=== PATIENT | male | born 1950 | race Hispanic/Latino ===

== ENCOUNTER 2017-08-20 09:27 | Day surgery (SDC) | payer MEDICARE ==
[2017-08-16 06:38] VITALS: BMI 32.0
[2017-08-20 10:01] LABS: BASO # 0.08 K/mm3 (0.0-2.0); BASO % 0.9 % (0.0-3.0); EOS # 0.3 (0.0-0.7); EOS % 2.7 % (1.5-5.0); GRAN # 5.44 (1.4-6.5); GRAN % 58.4 % (50.0-68.0); HEMOGLOBIN 13.5 g/dL (14.0-18.0); LYMPH # 2.9 (1.2-3.4); LYMPH % 30.6 % (22.0-35.0); MEAN CORPUSCULAR HEMOGLOBIN 31.9 pg (25.0-35.0); MEAN CORPUSCULAR HGB CONC 34.7 g/dl (31.0-37.0); MEAN PLATELET VOLUME 10.6 fl (7.0-11.0); MONO # 0.7 (0.1-0.6); MONO % 7.4 % (1.0-6.0); RBC 4.23 10^6/uL (3.5-6.1); WHITE BLOOD COUNT 9.3 10^3/ul (4.5-11.0)
[2017-08-20 10:10] LABS: CALCIUM 10.6 mg/dL (8.4-10.5)
[2017-08-20 10:11] LABS: INR 0.97 (0.93-1.08); PARTIAL THROMBOPLASTIN TIME 29.9 Seconds (25.1-36.5); PROTHROMBIN TIME 11.1 SECONDS (9.4-12.5)
[2017-08-20 10:14] VITALS: RESP 18; O2SAT 94
[2017-08-20] MEDS ORDERED: Iohexol 350mgl/ml 50 ML ONE (11:37)
[2017-08-20] MEDS ORDERED: Nitroglycerin 50mg in D5W 50 MG/250 ML BOTTLE IV ONE (11:37)
[2017-08-20] MEDS ORDERED: Lidocaine 2% Inj (20ml) ONE (11:37)
[2017-08-20] MEDS ORDERED: Verapamil 2 ML ONE (11:37)
[2017-08-20] MEDS ORDERED: Phenylephrine 10 mg/ml Inj ONE (11:37)
[2017-08-20] MEDS ORDERED: Iodixanol 320 MG/ML 200 ML BOTTLE IV ONE (11:37)
[2017-08-20] MEDS ORDERED: Midazolam 2 MG/2 ML VIAL ONE ×2 (11:42→11:53)
[2017-08-20] MEDS ORDERED: DiphenhydrAMINE 50 mg/ml Inj ONE (12:02)
[2017-08-20] MEDS ORDERED: Bacitracin 500 Units/gm Oint Foilpak UD TOP ONE (12:50)
[2017-08-20] MEDS ORDERED: Sodium Chloride 0.9% 1,000 ML IV SCH (13:00)
[2017-08-20 13:17] VITALS: TEMP 98.7
[2017-08-20] MEDS ORDERED: Bismuth Subsalicylate 262 mg/15 ml Sus (240 ml) PO ONE (13:33)
[2017-08-20] MEDS ORDERED: Bacitracin 500 Units/gm Oint Foilpak UD ONE (16:43)
[2017-08-20 17:03] VITALS: BP 135/70; PULSE 68
--- NOTE | 2017-08-20 21:31 | CARD ---
APPROVED REPORT EKG Measurement Heart [id number] [id number] <Conclusion> Normal sinus rhythm Left axis deviation Right bundle branch block Abnormal ECG
--- NOTE | 2017-08-29 15:55 | CARDCATH ---
PROCEDURE DATE: 08/20/2017 INDICATIONS: Mr. Candido Soliz is a 67-year-old male with past medical history significant for hypertension, diabetes, dyslipidemia, referred to me for abnormal nuclear stress test. The patient was brought to the laboratory sampler for further evaluation and treatment of symptoms of dyspnea on exertion along with abnormal nuclear stress test. PROCEDURE PERFORMED: Left heart catheterization with selective left and right coronary angiogram, PTCA stenting of mid RCA, deployment of drug-eluting stent x1, lesion reduction from 95% down to 0% NIDIA 3 flow, 6-Trinidadian radial arterial access, wrist band for hemostasis. TECHNIQUES OF PROCEDURE: After obtaining informed consent, the patient was brought to the cardiac catheterization suite in post-absorptive, non-sedated state. The patient was prepped and draped in the usual sterile fashion. A 2% lidocaine was used for infiltration of anesthesia. Using modified Seldinger technique, a 6-Trinidadian sheath was introduced into the left distal radial artery. Subsequently over J-wire, JR-4 diagnostic catheter was used to engage the right and left coronary system. Angiograms were obtained in different orthogonal views. CORONARY ANATOMY: Right coronary artery, large size vessel. Mid segment has a 95% stenosis. Distal RCA has mild 40% stenosis, right PDA and PLV, non-obstructive. Left coronary system, left main is large size vessel, gives off left circumflex and left anterior descending artery. Left circumflex has a mid 30% stenosis, runs in the AV groove, is a large vessel that gives off two medium-sized obtuse marginal branches which are non-significant and free of any obstructive disease. Distal circumflex has intermediate 40% stenosis. Left anterior descending artery has proximal 60% stenosis. Left anterior descending artery gives off 2 small septal perforators and 3 medium size diagonal branches. INTERVENTION: After reviewing the above angiographic findings, it was decided to further to fix the mid RCA stenosis using a JR-4 guiding catheter. Prowater wire was used to negotiate the lesion and was passed into the distal RCA. The lesion was predilated with balloon and subsequently, stented with a drug-eluting stent. Lesion reduction down to 0% NIDIA 3 flow. IMPRESSION: Successful percutaneous transluminal coronary angioplasty stenting of mid right coronary artery, deployment of drug-eluting stent times 1. End-diastolic pressure was mildly elevated. RECOMMENDATIONS: Continue dual antiplatelet therapy for one year. Keep the patient on guideline-directed therapy for CAD and diastolic CHF. The patient is to be followed by Dr. Roach for further evaluation of whether he would benefit from fractional flow reserve-guided percutaneous coronary intervention for LAD lesion or continue clinical management with guideline-directed therapy. Leonid Roach MD
== END 2017-08-20 19:15 | disposition home or self-care (01) ==
LOC: CATH 09:27 → 2RNO 13:00 → CATH 19:15
PROVIDERS: ATTEND Internal Medicine Interventional Cardiology
DX: I25.10 Atherosclerotic heart disease of native coronary artery without angina pectoris (principal); I10 Essential (primary) hypertension; E11.9 Type 2 diabetes mellitus without complications; E78.5 Hyperlipidemia, unspecified; Z79.4 Long term (current) use of insulin
CPT/HCPCS: 36415; 80048; 80061; 85025; 85175; 85610; 85730; 86850; 86900; 93005; 93458; 99152; 99153; C1725 ×2; C1769 ×2; C1874; C1887 ×4; C1894; C9113; C9600; J1200; J1644 ×2; J2250; J2370; J3010; J7030; J7040; Q9966; Q9967